=== PATIENT | female | born 1985 | race Caucasian/White ===

== ENCOUNTER 2019-01-19 09:04 | Emergency (ER) | payer OTHER ==
[2019-01-19 09:31] VITALS: BP 125/95
--- NOTE | 2019-01-19 10:15 | ED ---
Throat Pain/Nasal Congestion - HPI Summary HPI Summary: 33 yr old female with the complaint of sinus pain , post nasal drip, coughing. Symptoms are moderate. Onset of symptoms about two weeks ago. She denies smoking. Color of nasal and cough yellow. - History of Current Complaint Chief Complaint: UCGeneralIllness Time Seen by Provider: 01/19/19 09:46 - Allergies/Home Medications Allergies/Adverse Reactions: Allergies Allergy/AdvReac Type Severity Reaction Status Date / Time amoxicillin Allergy Hives Verified 01/19/19 09:32 Home Medications: Home Medications Cromolyn Sodium [Nasal Allergy [place]] 13 ml NS DAILY 01/19/19 [History Confirmed 01/19/19] Loratadine 10 mg PO DAILY 01/19/19 [History Confirmed 01/19/19] PMH/Surg Hx/FS Hx/Imm Hx Endocrine/Hematology History: Denies: Hx Diabetes, Hx Thyroid Disease Cardiovascular History: Denies: Hx Hypertension Respiratory History: Denies: Hx Asthma, Hx Chronic Obstructive Pulmonary Disease (COPD) GI History: Denies: Hx Ulcer - Surgical History Surgery Procedure, Year, and Place: x 3 Infectious Disease History: No Infectious Disease History: Denies: Hx Hepatitis, Hx Human Immunodeficiency Virus (HIV), Traveled Outside the [place] in Last 30 Days - Family History Known Family History: Positive: None - Social History Occupation: Student Alcohol Use: Weekly Substance Use Type: Reports: None Smoking Status (MU): Never Smoked Tobacco Review of Systems Constitutional: Negative Positive: Nasal Discharge Positive: Shortness Of Breath, Cough All Other Systems Reviewed And Are Negative: Yes Physical Exam Triage Information Reviewed: Yes Vital Signs On Initial Exam: Initial Vitals Temp Pulse Resp BP Pulse Ox 99.1 F 106 20 125/95 100 01/19/19 09:25 01/19/19 09:25 01/19/19 09:25 01/19/19 09:25 01/19/19 09:25 Vital Signs Reviewed: Yes Appearance: Positive: Well-Appearing, No Pain Distress Skin: Positive: Warm, Skin Color Reflects Adequate Perfusion Head/Face: Positive: Normal Head/Face Inspection Eyes: Positive: EOMI ENT: Positive: Pharynx normal, Nasal congestion, Nasal drainage, TMs normal, Sinus tenderness Neck: Positive: Nontender Respiratory/Lung Sounds: Positive: Breath Sounds Present, Decreased Breath Sounds. Negative: Stridor Cardiovascular: Positive: RRR. Negative: Murmur Abdomen Description: Negative: Distended Musculoskeletal: Positive: Strength/ROM Intact Neurological: Positive: Sensory/Motor Intact, Alert, Oriented to Person Place, Time, CN Intact II-III, Normal Gait, Speech Normal Psychiatric: Positive: Normal Diagnostics - Vital Signs Vital Signs Temp Pulse Resp BP Pulse Ox 01/19/19 09:25 99.1 F 106 20 125/95 100 - Laboratory Lab Statement: Any lab studies that have been ordered have been reviewed, and results considered in the medical decision making process. EENT Course/Dx - Course Course Of Treatment: 33 yr old with sinusitis. - Diagnoses Provider Diagnoses: Sinusitis, COPD exacerbation Discharge ED - Sign-Out/Discharge Documenting (check all that apply): Patient Departure All imaging exams completed and their final reports reviewed: No Studies - Discharge Plan Condition: Good Disposition: HOME Prescriptions: Clarithromycin TAB* [Biaxin 500 MG TAB*] 500 mg PO BID #20 tab Patient Education Materials: Sinusitis (ED), Hypertension (ED) Referrals: oSnal Mustafa [Primary Care Provider] - 2 Days - Billing Disposition and Condition Condition: GOOD Disposition: Home
== END 2019-01-19 10:17 | disposition home or self-care (01) ==
LOC: UCCORT 09:04
DX: J32.9 Chronic sinusitis, unspecified (principal); J44.1 Chronic obstructive pulmonary disease with (acute) exacerbation; Z88.0 Allergy status to penicillin
CPT/HCPCS: 99212; G0463